=== PATIENT | female | born 1965 | race Caucasian/White ===

== ENCOUNTER 2023-03-05 14:54 | Outpatient (REF) | payer OTHER, SELFPAY ==
[2023-03-05 20:12] LABS: MANUAL DIFF FLAG NO
[2023-03-05 20:22] LABS: Basophils Absolute Auto 0.1 X10*3/uL (0.0-0.2); Basophils Percent Auto 0.8 % (0-2); Eosinophils Absolute Auto 0.3 X10*3/uL (0.0-0.4); Eosinophils Percent Auto 3.1 % (0-4); Hematocrit 42.5 % (37.0-47.0); Hemoglobin 13.9 g/dl (12.0-16.0); Imm Gran Abs Auto 0.03 X10*3/uL (0.00-0.03); Imm Gran Pct Auto 0.3 % (0.0-0.4); Lymphocytes Absolute Auto 3.9 X10*3/uL (1.2-4.9); Lymphocytes Percent Auto 44.1 % (20-40); Mean Corpuscular HGB Conc 32.7 g/dl (31.0-35.0); Mean Corpuscular Hemoglobin 29.2 pg (27.0-33.0); Mean Corpuscular Volume 89.3 fL (80.0-98.0); Mean Platelet Volume 10.5 fL (9.4-12.3); Monocytes Percent Auto 11.8 % (2-11); Neutrophils Absolute Auto 3.5 x10*3/uL (2.0-8.3); Neutrophils Percent Auto 39.9 % (45-73); Platelet Count 561 X10*3/uL (160-400); Red Blood Count 4.76 X10*6/uL (4.20-5.50); Red Cell Distribution Width 13.8 % (11.0-16.0); White Blood Count 8.8 X10*3/uL (4.8-10.8)
[2023-03-05 20:51] LABS: Alanine Aminotransferase 10 U/L (0-31); Albumin Level 4.1 g/dL (3.5-5.0); Alkaline Phosphatase 55 U/L (39-117); Anion Gap 15 (12-20); Bilirubin Total 0.3 mg/dL (0.0-1.0); Chloride 107 mmol/L (96-108); Estimated Glomerular Filt Rate > 60; Potassium 4.3 mmol/L (3.3-5.1); Sodium 141 mmol/L (135-145); Total Protein 6.2 g/dL (6.5-8.0)
[2023-03-05 20:52] LABS: Aspartate Amino Transferase 13 U/L (5-31); Blood Urea Nitrogen 19 mg/dL (9-16); Calcium 9.2 mg/dL (8.4-10.2); Carbon Dioxide 23 mmol/L (22-29); Glucose Random 91 mg/dL (60-115)
[2023-03-05 21:08] LABS: Thyroid Stimulating Hormone 2.74 uIU/mL (0.32-4.0); Vitamin D 25-OH Total 36.8 ng/mL (>30)
== END 2023-03-05 14:55 | disposition home or self-care (01) ==
LOC: HO.MANLDS 14:54
PROVIDERS: Visit Provider Physician Assistant
DX: Z00.00 Encounter for general adult medical examination without abnormal findings (principal); R22.9 Localized swelling, mass and lump, unspecified
CPT/HCPCS: 36415; 80053; 82306; 84439; 84443; 85025

== ENCOUNTER 2024-12-19 18:55 | Emergency (ER) | payer OTHER, SELFPAY ==
--- NOTE | ~2024-12-19 | CT_ITS ---
CLINICAL HISTORY: fall head strike yest. neck pain CT cervical spine without contrast Comparison: None Findings: No fracture or acute malalignment. Degenerative changes most pronounced at C5-6 and C6-7. Facet joints are normally imbricating. Visualized intracranial contents are unremarkable. Soft tissues of the neck are normal. No consolidation or effusion at the lung apices. IMPRESSION: No acute findings. Mild degenerative changes This document has been electronically signed by: Barber Gunn MD on 12/19/2024 20:04:54
--- NOTE | ~2024-12-19 | CT_ITS ---
CLINICAL HISTORY: fall head strike yest. neck pain CT head without contrast Comparison: None Findings: No intra-axial mass, midline shift, hydrocephalus, or acute hemorrhage. No significant atrophy-like change or white matter disease. There is no sinus or mastoid fluid. The orbits are within normal limits. No skull fracture. IMPRESSION: 1. No acute intracranial findings. This document has been electronically signed by: Barber Gunn MD on 12/19/2024 20:02:46
[2024-12-19 19:10] VITALS: BP 165/105; PULSE 86; RESP 16; TEMP 36.7; O2SAT 96; BMI 28.2
--- NOTE | 2024-12-19 19:10 | ED.NECK ---
HPI - Neck Pain/Injury General Chief Complaint: Neck Pain/Injury Stated Complaint: neck,shoulder pain, unable to turn neck Time Seen by Provider: 12/19/24 19:45 Source: patient Mode of arrival: ambulatory Limitations: no limitations History of Present Illness ED Provider: Guy Almanza DO HPI Narrative: 59-year-old female with no significant past medical history presents to the emergency department with 3 days of progressively worsening right-sided neck pain which radiates to the right posterior shoulder, onset after shoveling ice over the past few days. Patient denies any trauma or previous surgeries to the neck. She does report a fall with posterior head strike without LOC last night while she was consuming alcohol after attending a show. She denies any prodromal symptoms. She reports an intermittent mild headache since that time. She states her neck is worse with any movement, including when she moves her neck to swallow foods. She denies fevers, chills, numbness or weakness of her arms or swelling under her jaw. She denies difficulty breathing or chest discomfort. She denies pain when brushing her hair or palpating her scalp or face. She denies similar symptoms in the past. She follows regularly with a primary care provider and does not take any medications nor does she take any pain medications prior to arrival during the course of this pain. Related Data Previous Rx's ?Medication ?Instructions ?Recorded cyclobenzaprine 10 mg tablet 10 mg PO BEDTIME PRN muscle spasm 12/19/24 #10 tabs Allergies Allergy/AdvReac Type Severity Reaction Status Date / Time No Known Allergies Allergy Verified 12/19/24 19:14 Review of Systems Review of Systems: Yes all other systems are reviewed and are negative PMFSH Social History Social History Advance Directives: No Advance Directives Information Provided: No Do you have a plan to hurt others: No Plan Physical Exam Vital Signs: Vital Signs: Last Vital Signs Temp 98.4 F 12/19/24 19:55 Pulse 81 12/19/24 19:55 Resp 16 12/19/24 19:55 BP 154/85 H 12/19/24 19:55 Pulse Ox 98 12/19/24 19:55 O2 Del Method Room Air 12/19/24 19:55 BMI result Body Mass Index 28.2 Constitutional: ?Alert, oriented, speaking in full sentences, keeping neck in a still position secondary to discomfort with movement HEENT: ?Normocephalic, atraumatic. ?There is no tenderness over the temporal region. There is no clicking over the TMJ. Mallampati class 1 with no intraoral edema or uvular deviation. Moist mucous membranes. Unremarkable tympanic membranes bilaterally. Eyes: ?PERRL, EOMI unremarkable conjunctivae. Neck: ?The patient has pain with movement of her neck but is able to range it in all directions. There is some right-sided paravertebral tenderness without fullness or fluctuance. There is also tenderness over the right trapezius muscle. Chest: ?No chest wall tenderness Respiratory: ?Lungs clear to auscultation, no increased work of breathing Cardio: ?Regular rate and rhythm, no murmur, 2+ radial and DP pulses symmetrically GI: ?Soft, nondistended, nontender Back: ?Normal range of motion, nontender Skin: ?No rash, no lesions Neuro: ?Alert and oriented to person, place and time, moves all 4 extremities, no focal deficits, 5/5 strength and full sensation of the bilateral upper extremities Extremities: ?No swelling or tenderness, full range of motion of the upper extremities. No tenderness over the rotator cuff tendons. Psych: ?Calm, alert and cooperative, appropriate behavior Course Course Course Narrative: This is a Rapid Medical Exam performed in triage by Natalie Zhang PA-C. Full HPI, ROS and PE to be performed by primary ED provider. 59 yo F presenting to the ED c/o neck pain & stiffness x few days s/p shoveling. States cannot eat or swallowing due to pain. Also reports fall yesterday with head strike s/p out drinking ETOH with family which worsened pain. Denies AC use PE: +neck stiffness. No midline spinous ttp, +R sided cervical paraspinal ttp. limited ROM neck Plan: Head/C-spine CT Medical Decision Making Medical Decision Making MDM Narrative: Patient presenting with signs and symptoms of a right-sided paravertebral cervical strain as well as possible trapezius strain. There are no signs or symptoms consist with temporal arteritis, deep space infection or Edmund's angina. CT imaging of the brain and cervical spine are unremarkable. No concerns for near syncopal or syncopal event. Treated the patient here with acetaminophen, ibuprofen, Lidoderm patch and cyclobenzaprine with a prescription for cyclobenzaprine and return precautions as well as instructions to continue [id number] medications at home and ice application with close PCP follow-up. All questions answered and patient agrees with plan. Admission/Observation Consideration of admission/observation: Escalation of care including admission/observation considered Discharge Plan Discharge Clinical Impression: Strain of neck muscle Patient Disposition: Home, Self-Care Instructions: Cervical Sprain (ED) Additional Instructions: You were evaluated for right-sided neck pain which appears to be a muscle strain. CT imaging of your brain and cervical spine did not show any acute abnormalities and your exam was reassuring for no signs of infection. We recommend you take 600mg ibuprofen every 6 hours with food and acetaminophen (Tylenol) 1000 mg every 8 hours as needed for pain for the next 1-2 weeks. Additionally, apply Lidoderm patch and keep it in place for 12 hours, remove it and apply a new 1 the next day. When not using the Lidoderm patch you can apply ice to the area for the next couple of days, 20 minutes at a time, followed by heat starting few days from now if this helps with the pain. Due to increased pain and spasm, we prescribed you a medication called cyclobenzaprine (Flexeril). This will make you drowsy and you should not drive while on this medication. You can take it up to twice a day, especially as needed at bedtime to help you sleep. Please return to the emergency department if you have any fevers over 100 degrees F, shaking chills, drooling or difficulty swallowing your spit or food/water, worsening headache, difficulty with balance, numbness or weakness of your arm, inability to open your mouth or any other acute changes or concerns. Otherwise follow up with your primary care provider for re-evaluation. Avoid heavy lifting for the next 1-2 weeks. Prescriptions: New cyclobenzaprine 10 mg tablet 10 mg PO BEDTIME PRN (Reason: muscle spasm) Qty: 10 0RF Stand Alone Forms: Work/School Release Print Language: Citizen Of [place]
[2024-12-19 19:55] VITALS: BP 154/85; PULSE 81; RESP 16; TEMP 36.9; O2SAT 98
[2024-12-19] MEDS: Cyclobenzaprine HCl 10 MG TABLET PO (20:50)
[2024-12-19] MEDS: Lidocaine 4 % Patch ADH..PATCH 1 PATCH TRANSDERMA (20:51)
[2024-12-19] MEDS: Ibuprofen 600 MG TABLET PO (20:51)
[2024-12-19] MEDS: Acetaminophen 325 MG TABLET 975 MG PO (20:51)
[2024-12-19 21:15] VITALS: BP 154/85; PULSE 81; RESP 16; TEMP 36.9; O2SAT 98
== END 2024-12-19 21:15 | disposition home or self-care (01) ==
PROVIDERS: Emergency Provider Emergency Medicine; PCP Internal Medicine
DX: S16.1XXA Strain of muscle, fascia and tendon at neck level, initial encounter (principal); X50.0XXA Overexertion from strenuous movement or load, initial encounter; R51.9 Headache, unspecified; Y93.H1 Activity, digging, shoveling and raking; Y92.9 Unspecified place or not applicable; Y99.9 Unspecified external cause status
CPT/HCPCS: 70450; 72125; 99283; 99284

== ENCOUNTER → 2024-12-19 19:13 | Outpatient (BNV) | payer OTHER, SELFPAY | PROVIDERS: Emergency Provider Emergency Medicine; PCP Internal Medicine; Visit Provider Radiology Vascular & Interventional Radiology | DX: M54.2 Cervicalgia (principal) | CPT/HCPCS: 70450; 72125 ==

== ENCOUNTER 2025-05-11 11:09 | Outpatient (REF) | payer OTHER, SELFPAY ==
--- OUTSIDE RECORDS SUMMARY | 2025-05-11 12:24 | XMS_ITS | Data Portability ---
Author Organization [facility] Telehealth Patient Home Address [address] [place] [address] Assessment Encounter Date Assessment Date Assessment LastModified by Organization Details LastModified Time 11/19/2023 11/19/2023 Patient agreed and verbally consents to this audio and video Telehealth appt via a secure platform [email or web address] Not available 11/19/2023 11:01:27 01/07/2024 01/07/2024 Patient agreed and verbally consents to this audio and video Telehealth appt via a secure platform [email or web address] Not available 01/07/2024 11:23:27 02/28/2024 02/28/2024 [id number] [place] [id number] (VP HUM[employer]) : MDM LOW MUST MEET 2 OF 3 ELEMENTS: PROBLEMS, DATA OR RISK ELEMENT 1: PROBLEMS ADDRESSED (LOW): 2 OR MORE SELF-LIMITED OR MINOR PROBLEMS OR 1 STABLE CHRONIC ILLNESS OR 1 ACUTE UNCOMPLICATED ILLNESS OR INJURY ELEMENT 2: DATA TO BE REVISED AND ANALYZED (LOW) MUST MEET 1 OF 2 CATEGORIES: CATEGORY 1. REVIEW OF PRIOR EXTERNAL NOTES/RESULTS, ORDERING OF TEST(S) CATEGORY 2. ASSESSMENT REQUIRING INDEPENDENT HISTORIAN(S) INCLUDE WHO THE HISTORIAN IS AND RELATION TO PT AND WHY PT IS UNABLE TO GIVE COMPLETE HISTORY ELEMENT 3: RISK (LOW) RISK OF COMPLICATIONS AND/OR MORBIDITY OR MORTALITY OF PATIENT MANAGEMENT PROVIDER MUST THOROUGHLY DOCUMENT ALL OF THE ELEMENTS COVERED Not available 02/28/2024 09:57:26 Plan of Treatment Reminders Order Date Submit Date Provider Last Modified By Organization Details Last Modified Time Details Appointments ANNUAL EXAM 2024 10:30A M DR HINES Not available Not available Not available ANNUAL EXAM 2025 10:30A M DR HINES Not available Not available Not available Lab CMP, serum or plasma 2024 025 [facility], [address] [place] [address], [address], 05/11/2025 11:08:23 CBC w/ auto diff 2024 025 [facility], [address] [place] [address], [address], 05/11/2025 11:08:24 lipid panel, blood 2024 025 [facility], [address] [place] [address], [address], 05/11/2025 11:08:24 vitamin D, 25-hydrox y, total, serum 2024 025 [facility], [address] [place] [address], [address], 05/11/2025 11:08:24 Referral dermatolo gist referral 2024 025 [email or web address] [facility] [place], [address] [facility] [address], [place], [address], 05/11/2025 11:10:58 ophthalmo logist referral 2024 025 Marla Hunter MD, [address] [facility] [address], [place], [address], 05/11/2025 11:10:58 dermatolo gist referral 2024 025 [facility] [place], [address] [facility] [address], [place], [address], 11/17/2024 08:12:51 Procedures None recorded. Surgeries None recorded. Imaging CT, chest, w/o contrast - #[id number], effective 5 - 5, for procedure code [id number] 2024 025 [facility], [address] [place], [address], 11/20/2024 10:33:55 PFT, complete 2024 [facility] ([facility]iology), [address] [place], [address], 11/17/2024 16:05:35 Medication Orders albuterol sulfate HFA 90 mcg/actua tion aerosol inhaler 2024 025 [facility], [address] [place], [address], 05/11/2025 11:05:45 alprazola m 0.5 mg tablet 2024 025 [facility], [address] [place], [address], 05/11/2025 11:05:45 fluconazo le 150 mg tablet 2024 025 [facility], [address] [place], [address], 05/11/2025 11:05:46 fluconazo le 150 mg tablet 2023 025 [facility], [address] [place], [address], 11/13/2024 14:57:01 Medrol (Volodymyr) 4 mg tablets in a dose pack 2023 024 [address] [place], [address], 02/28/2024 09:32:39 amoxicill in 875 mg-potass ium clavulana te 125 mg tablet 2023 024 [address] [place], [address], 02/28/2024 09:32:33 Diflucan 150 mg tablet 2023 024 [email or web address] [facility], [address] [place], [address], 11/13/2024 14:56:59 omeprazol e 40 mg capsule,d elayed release 2023 024 [email or web address] [facility], [address] [place], [address], 12/12/2023 09:37:42 Patient TargetsNo targets recorded. Patient Instructions Encounter Date Encounter Id Patient Instructions Last Modified By Organization Details Last Modified Time 02/28/2024 [id number] vaginal yeast infection: care instructions Not available 02/28/2024 09:59:14 05/11/2025 [id number] chronic cough: care instructions Not available 05/11/2025 10:57:19 methacholine challenge* - with PFT [email or web address] Not available 05/11/2025 10:58:26 Reason for Referral Sales Operations Director Referral for B chula cell carcinoma of skin possible basal cell carcinoma, rapidly changing in appearance and bleeds easily without healing Referring Physician: Osiris Foote, Internal Medicine, Encounter Date: 11/13/2024 Sales Operations Director Referral for D ysplastic nevus of skin Referring Physician: Crispin Hines, Internal Medicine, Encounter Date: 05/11/2025 Child Welfare Worker Referral for Lesion of right eyelid eyelid lesion Referring Physician: Crispin Hines, Internal Medicine, Encounter Date: 05/11/2025 Results Created Date Observation Date Name Description Value Unit Range Abnormal Flag Note LastModifiedBy Organization Detail LastModifiedTime 11/23/1911/23/2024 CT, chest , w/o contr ast No observ ation record ed. [email or web address] Not Available 2024 11:16:45 12/20/19 25 12/19/2024 CT, brain , w/o contr ast No observ ation record ed. [facility] (Medical Records) [address] [place] [address], [address], 12/20/2024 07:42:25 12/20/19 25 12/19/2024 CT, cervi frank spine , w/o contr ast No observ ation record ed. [facility] (Medical Records) [address] [place] [address], [address], 12/20/2024 07:43:00 Result Notes None recorded. Problems Name Problem SNOMED Code Status Onset Date Resolution Date Notes Provider Name and Address Organization Details Recorded Time Anxiety 81384739 Active 2018 Not Available [facility] 2 23:15:34 Dyspnea 100823708 Active 2021 Not Available [facility] 2 23:15:34 Cough 97064102 Active 2021 Not Available [facility] 2 23:15:34 COVID-19 589370173 Active 2021 Not Available [facility] 2 23:15:34 Mass of soft tissue 511115829 Active 2022 JUAN F QURESHI [address] [place] [address], [address], [facility] [place] 3 14:42:37 Seasonal allergic rhinitis 697077461 Active 2022 JUAN F QURESHI [address] [place] [address], [address], [facility] [place] 3 14:43:19 Lymphaden opathy 95618948 Active 2022 JUAN F QURESHI [address] [place] [address], [address], [facility] [place] 3 13:21:59 Candidias is of vagina 45785943 Active 2022 JUAN F QURESHI [address] [place] [address], [address], [facility] [place] 3 16:51:09 Herpes zoster 6991590 Active 2022 Crispin Hines DO [address] [place] [address], [address], [facility] [place] 3 11:35:57 Gastritis 1750987 Active 2023 JUAN F QURESHI [address] [place] [address], [address], [facility] [place] 4 11:00:47 Acute otitis media 7116080 Active 2023 JUAN F QURESHI [address] [place] [address], [address], [facility] [place] 4 11:24:09 Serous otitis media 65033350 Active 2023 Crispin Hines, [address], [address], [facility] [place] 4 09:57:43 Serous otitis media 34753403 Active 2023 Crispin Hines, [address], [address], [facility] [place] 4 09:58:49 Acute bronchiti s 38377773 Active 2024 JUAN F QURESHI [address] [place] [address], [address], [facility] [place] 5 10:14:27 Basal cell carcinoma of skin 710090406 Active 2024 JUAN F QURESHI [address] [place] [address], [address], [facility] [place] 5 15:09:24 Basal cell carcinoma of skin 786161697 Active 2024 JUAN F QURESHI [address] [place] [address], [address], [facility] [place] 5 15:10:41 Acquired dilatatio n of ascending aorta and aortic root 273042302 Active 2024 JUAN F QURESHI [address] [place] [address], [address], [facility] [place] 5 11:17:59 Chronic cough 57887186 Active 2024 Crispin Hines, [address], [address], [facility] [place] 5 10:55:32 Dysplasti c nevus of skin 741872058 Active 2024 Crispin Hines, DO [address] [facility], [place], [address], [facility] [place] 5 10:57:35 Lesion of right eyelid 369730740696 36521 Active 2024 Crispin Hines, DO [address] [facility], [place], [address], [facility] [place] 5 10:58:10 Notes:Some problems listed i n Document: #[id number] could not be added to this patient's chart. Please review this document and add these problems to the patient's chart manually as needed. Problem Notes None recorded. Procedures Surgical History Date Name Laterality Status Provider Name and Address Organization Details Recorded Time section completed Yoana Kulkarni [facility] 01/27/2019 08:15:33 Imaging Results None recorded. Procedure Notes None recorded. Medical Equipment None Reported. Allergies No known drug allergies Medications Name Sig Start Date Stop Date Status Note LastModified by Organization Details LastModified Time cyclobenzap rine 10 mg tablet TAKE 1 TABLET (10 MG) ORALLY BEDTIME NEEDED FOR MUSCLE SPASM 05/11 completed Not Available Not Available Not Available prednisone 10 mg tablet 01/10 completed Not Available Not Available Not Available doxycycline hyclate 100 mg capsule 01/27 completed Not Available Not Available Not Available azithromyci n 250 mg tablet TAKE 2 TABLETS BY MOUTH TODAY, THEN TAKE 1 TABLET DAILY FOR 4 DAYS DIRECTED 11/13 completed Not Available Not Available Not Available Lidocaine Viscous 2 % mucosal solution Take 15 mL every 3 hours by oral route as needed for 7 days. 01/10 completed Not Available Not Available Not Available fluconazole 150 mg tablet Take 1 tablet by oral route as directed for 2 days. 2024 active Not Available Not Available Not Avai lable benzonatate 200 mg capsule TAKE 1 CAPSULE BY MOUTH THREE TIMES A DAY NEEDED FOR 14 DAYS 11/13 completed Not Available Not Available Not Available valacyclovi r 1 gram tablet TAKE 1 TABLET BY MOUTH EVERY 8 HOURS FOR 7 DAYS 11/13 completed Not Available Not Available Not Available metronidazo le 0.75 % (37.5 mg/5 gram) vaginal gel INSERT 1 APPLICATO RFUL(S) BY VAGINAL ROUTE , 1 TIME PER DAY , FOR 5 DAYS 03/05 completed Not Available Not Available Not Available omeprazole 40 mg capsule,del ayed release TAKE 1 CAPSULE BY MOUTH EVERY DAY active Not Available Not Available No t Available acyclovir 800 mg tablet 01/10 completed Not Available Not Available Not Available alprazolam 0.5 mg tablet TAKE 1 TABLET BY MOUTH EVERY 6 TO 8 HOURS NEEDED 2024 active Not Available Not Available Not Avai lable amoxicillin 875 mg tablet TAKE 1 TABLET BY MOUTH EVERY 12 HOURS FOR 5 DAYS 11/19 completed Not Available Not Available Not Available benzonatate 100 mg capsule 01/10 completed Not Available Not Available Not Available cephalexin 500 mg capsule TAKE 1 CAPSULE BY MOUTH 3 TIMES DAILY X5 DAYS WITH FOOD AND A GLASS OF WATER 05/08 completed Not Available Not Available Not Available neomycin-po lymyxin-dex ameth 3.5 mg/mL-10,00 0 unit/mL-0.1 % eye drops INSTILL 1 DROP INTO AFFECTED EYE(S) EVERY 3 TO 4 HOURS 03/05 completed Not Available Not Available Not Available gabapentin 300 mg capsule Take 1 capsule 3 times a day by oral route for 30 days. 03/05 completed Not Available Not Available Not Available codeine 10 mg-guaifene sin 100 mg/5 mL oral liquid TAKE 10 ML BY MOUTH EVERY 4 HOURS 02/26 completed Not Available Not Available Not Available levofloxaci n 500 mg tablet TAKE 1 TABLET BY MOUTH EVERY 24 HOURS FOR 7 DAYS 03/05 completed Not Available Not Available Not Available methylpredn isolone 4 mg tablets in a dose pack TAKE 6 TABLETS ON DAY 1 DIRECTED ON PACKAGE AND DECREASE BY 1 TAB EACH DAY FOR A TOTAL OF 6 DAYS 02/27 completed Not Available Not Available Not Available albuterol sulfate HFA 90 mcg/actuati on aerosol inhaler INHALE 1-2 PUFFS BY INHALATIO N ROUTE EVERY 4-6 HOURS NEEDED 2024 active Not Available Not Available Not Avai lable piroxicam 20 mg capsule 01/27 completed Not Available Not Available Not Available amoxicillin 875 mg-serena reyes clavulanate 125 mg tablet TAKE 1 TABLET BY MOUTH EVERY 12 HOURS FOR 7 DAYS 02/27 completed Not Available Not Available Not Available Paxlovid 300 mg (150 mg x 2)-100 mg tablets in a dose pack TAKE 3 TABLETS TWICE A DAY BY ORAL ROUTE FOR 5 DAYS-- DIRECTED ON PACKAGE 03/05 completed Not Available Not Available Not Available molnupiravi r 200 mg capsule (EUA) TAKE 4 CAPSULES BY MOUTH EVERY 12 HOURS X5 DAYS 03/05 completed Not Available Not Available Not Available Vitals Date Recorded Body height Body mass index (BMI) Body weight Heart rate Oxygen saturation Oxygen saturation in Arterial blood by Pulse oximetry Systolic And Diastolic Provider Name and Address Organization Details Last Updated DateTime 5 160.02 cm 29.2 kg/m2 40918.7 4 g 71 /min 98 % 98 % 156/98 mm[Hg] Krystal Lawson [facility] 5 15:01:19 Date Recorded Body height Provider Name an d Address Organization Details Last Updated DateTime 01/07/2024 160.02 cm Krystal Lawson [facility] 01/07/2024 10:04:25 Date Recorded Body height Body mass index (BMI) Body weight Heart rate Respiratory rate Oxygen saturation Oxygen saturation in Arterial blood by Pulse oximetry Systolic And Diastolic Provider Name and Address Organization Details Last Updated DateTime 4 160.02 cm 29.2 kg/m2 96475.7 4 g 86 /min 16 /min 98 % 98 % 146/80 mm[Hg] Deric Montilla [facility] 4 09:32:10 Date Recorded Body height Body mass index (BMI) Body weight Oxygen saturation Oxygen saturation in Arterial blood by Pulse oximetry Heart rate Systolic And Diastolic Provider Name and Address Organization Details Last Updated DateTime 5 160.02 cm 28.9 kg/m2 20838.9 2 g 98 % 98 % 88 /min 122/84 mm[Hg] Dipika Nassar [facility] 5 10:27:41 Social History Question Answer Notes LastModified by Organizat ion Details LastModified Time Tobacco Smoking Status Never Smoker Not Available [facility] 08/23/2020 03:36:23 What Was The Date Of Your Most Recent Tobacco Screening? 05/11/2025 [email or web address] Information not available 05/11/2025 Sex: Unknown Functional Status Question Answer Note LastModified by Organization D etails LastModified Time Do you or have you ever used any other forms of tobacco or nicotine? No [email or web address] Information not available 05/24/2023 Mental Status None recorded. Family History Nothing Reported. Medical History No medical history recorded. Gynecological HistoryNo gynecological history recorded. Obstetrics History GPAL:G 0 P 0 0 0 0 Immunizations Vaccine Type Date Status Note Provider Nam e and Address Organization Details Recorded Time COVID-19 vaccine, vector-nr, rS-Ad26, PF, 0.5 mL 01/28/2021 completed Not Available [facility] 2 23:15:34 COVID-19 vaccine, vector-nr, rS-Ad26, PF, 0.5 mL 08/29/2021 completed Not Available [facility] 2 23:15:34 Past Encounters Encounter ID Performer Location Encounter Start Date Encounter Closed Date Diagnosis/Indication Diagnosis SNOMED-CT Code Diagnosis ICD10 Code Diagnosis Note [id number] Crispin Hines [facility] [address] [facility] [facility] [address] 01/27/2019 10:19:59 01/27/2019 10:56:26 Adult health examination 053940059 Z00.00 doing well overall and is feeling well needs lab Active or passive immunization 711431284 Z23 [id number] Crispin Hines DO [facility] [address] [facility],[place] [address] 06/03/2019 08:45:11 06/03/2019 09:17:21 Herpes zoster 8048235 B02.9 continue acyclovir consider shingrix consider lidoderm after lesions heal Anxiety 53799308 F41.9 avoid xanax while on gabapentin [id number] Crispin Hines DO [facility] [address] [facility],[place] [address] 09/06/2021 09:43:45 09/06/2021 16:50:56 Acute sinusitis 22026640 J01.00 will start on treatment for sinusitis vs pharyngiti s Cough 93808467 R05.1 given cough suppressan t Pain in throat 444677953 R07.0 given lidocaine mouth wash for sore throat [id number] Crispin Hines [facility] [address] [facility],[place] [address] 02/02/2022 09:24:42 02/06/2022 13:57:43 Dyspnea 650247251 R06.02 will resubmit inhaler and see what it prompts the pharmacy to do Cough 25913158 R05.1 will fu with a CXR and medication treatment, adjust based on XR results [id number] Crispin Hines [facility] [address] [facility],[place] [address] 02/26/2022 10:17:44 02/26/2022 11:08:42 Active or passive immunization 221510634 Z23 will get Tdap Adult heal th examination 742908598 Z00.00 doing well overall and is feeling well needs lab Screening for malignant neoplasm of colon 426720585 Z12.11 fwe will set up for the fall COVID-19 916159825 U07.1 has now resolved and is feeling wellrelate s the antiviral meds helped her and she did quite well [id number] Crispin Hines [facility] [address] [facility],[place] [address] 03/05/2023 14:25:16 03/11/2023 09:38:51 Anxiety 52255551 F41.1 stable Mass of soft tissue [address] Seasonal a llergic rhinitis 041528043 J30.2 possibly related to the season Adult heal th examination 948552916 Z00.00 agreed to new work upnothing on file [id number] Crispin Hines [facility] [address] [facility],[place] [address] 05/24/2023 08:49:45 05/24/2023 14:39:39 Herpes zoster 9380767 B02.9 finsih all valacyclov ir but now with ac cellulitis developing Candidiasis of vagina 72 478904 B37.31 [id number] Crispin Hines [facility] [address] [facility] [address],[place] [address] 06/11/2023 11:43:36 06/11/2023 13:38:09 Anxiety 27257512 F41.9 no major issues Adult heal th examination 806229217 Z00.00 doing well overall and is feeling well needs lab [id number] Crispin Hines [facility] [address] [facility] [address],[place] [address] 11/19/2023 08:47:51 11/19/2023 15:41:04 Gastritis 8988489 K29.60 fu with pt in two weeks [id number] Crispin Hines [facility] [address] [facility] [address],[place] [address] 01/07/2024 09:58:36 01/07/2024 16:03:52 Acute otitis media 6538061 H65.04 start abx and medrol Candidiasis of vagina 72 906223 B37.31 hx of yeast infections after abx use, needs refill [id number] Crispin Hines [facility] [address] [facility] [address],[place] [address] 02/28/2024 09:16:25 02/28/2024 10:30:13 Depression screening 774675405 Z13.31 Negative Screening Serous otitis media 8032 7007 H65.91 sudafed bid for two weeks Candidiasis of vagina 72 555104 B37.31 [id number] Crispin Hines [facility] [address] [facility] [address],[place] [address] 11/13/2024 14:42:41 11/13/2024 15:31:42 Basal cell carcinoma of skin 308573811 C44.719 will set up [facility] consult for eval for possible basal cell carcinoma Dyspnea 255771925 R06.02 set up with further testing Anxiety 60481234 F41.1 stable [id number] DO Tessie Gabriel [facility] [address] [facility],[place] [address] 05/11/2025 10:20:15 05/11/2025 11:10:57 Active or passive immunization 005408718 Z23 will get Tdap Depression screening 171 100201 Z13.31 Negative Screening Acquired d ilatation of ascending aorta and aortic root 766982573 I77.810 followed by cardiology Anxiety 37496862 F41.1 no major issues Preventive procedure 169 508329 Z00.00 doing well overall and is feeling well needs lab Chronic cough 36232639 R 05.3 Dysplastic nevus of skin 239018746 D22.9 Lesion of right eyelid 4946341048 5109563 H02.9 Cough 49911322 R05.9 Candidiasis of vagina 72 730852 B37.31 Health Concerns Section Related Observation LastModified by Organization Detai ls LastModified Time None Recorded Concern Status LastModified by Organization Details LastModified Time None Recorded Advance Directives Directive None Recorded Payers Insurance Date Sequence Insurance Name Policy Number Policy Harper Covered Member ID Harper Member ID Guarantor Name 11/13/2024 1 [facility] [id number] Marlene Marrero [id number] Marlene Marrero 05/08/[address] [facility] [id number] Marlene Marrero [id number] Marlene Marrero Notes Date Note Type Note Provider Name a nd Address Organization Details Recorded Time 4 text/html c/o sore throat The patient is participating in this appointment via telemedicine communication with a phone call/video calling service ([employer] [employer])The patient consents to use of these platforms in place of an in-person appointment due to either sick symptoms the patient is presenting with or current office closure due to COVID exposure in order to keep our office staff and patients safe the patient reports that she developed bad acid reflux symptoms causing sore throatthe patient reports it has been going on for the past couple weeks the patient reports she feels it more at night during bed the patient reports that she has been eating more at night late and spicy foodthe patient most likely has gastritis/esophagitis start omeprazole 40 mg for 30 daysupdate ar in two weeks JUAN F QURESHI [address] [place], [address], [facility] [place] 11/19/2023 11:07:31 4 text/html c/o sick symptoms The patient is participating in this appointment via telemedicine communication with a phone call/video calling service ([facility] [employer])The patient consents to use of these platforms in place of an in-person appointment due to either sick symptoms the patient is presenting with or current office closure due to COVID exposure in order to keep our office staff and patients safe The patient presents to the office today with concerns of sick symptoms including right earache, LN swelling, right side, pain with swallowing but not throat pain, tender around her right ear no fever, no chest pain, no chillsno sinus pain or pressureno cough or no sob no chest tightness The symptoms started originally about a few days agoThe patient reports exposure to people at a funeralThe patient symptoms mainly involves the LN swelling and pain and painful right ear Pertinent comorbidities include n/a The patient symptoms are alleviated by nothingThe patient symptoms are exacerbated by bending forward and swallowing The patient has tested for COVID-19 and the results was negative JUAN F QURESHI [address] [place], [id number], [facility], [place], operated by [facility] 01/07/2024 11:27:34 4 text/html here for rechk and relates that she has been getting recurrent ear infections in right ear and has had several course of antibioticsnow with coughing and ear pain sl dizzyalso has yeast infect Crispin Hines DO [address] [facility], [place], [id number], [facility], [place], operated by [facility] 02/28/2024 10:00:11 5 text/html f/u mutliple issues the patient reports that she has a lingering dry cough, the patient reports that the cough has been ongoing for about a year the patient had an XR that was clear in 2021, had been intermittent for awhileno CT or PFTrecommended further evaluation for RAD/interstitial lung diseasepatient agreedorders sent patient has a new lesion on the inside of her L thigh, raised edges, about 1.5 cm in length, rolled, pearly skin color, with scabbingpatient nicked it with her razor and it bleed for awhile, continue to bleed on and offgrew rapidly, within 3 weeks it developed from very small lesion into what it looks like today recommended ANDREIA f/u with derm, concern for possible basal cell given appearance, growth rate and difficulty healingreferral sent anxiety is good, xanax works well for her, just refilled, no questions about the medicaton JUAN F QURESHI [address] [place], [id number], [facility], [place], operated by [facility] 11/13/2024 15:23:47 text/html Annual WellnessReported bypatient.Diet and Nutrition:healthy diet Fracture Risk:no history of fractures; no recent explained fracture; no sudden unexplained fractures; no previous musculoskeletal injuries Physical Activity:exercises on a regular basis; recent increase in physical activity; good physical condition Additional Lifestyle Factors:no tobacco use; no alcohol intake; stopped drinking alcohol Depression Risk:never feels sad, empty, or tearful; no loss of interest in activities; no significant changes in weight; no sleep disturbances or insomnia; no agitation; no loss of energy; no feelings of worthlessness or guilt; no thoughts of suicide; no history of depression; no history of mood disorders Hearing:no loss of hearing Vision:no vision problemsNotes:has an onging irritating coughAnxiety/Depressi onReported bypatient.Severity:de nies suicidal ideations; able to maintain relationships; does not interfere with activities of daily living Context:no major life stressors Associated Symptoms:denies homicidal ideations; no significant weight gain; no significant weight loss; no visual/auditory hallucinations; no delusions; no shortness of breath; mood good; no anxiety; no crying spells; no panic; no isolation; sleeping well; appetite good; energy good; no apathy; maintaining functionality here for rechk states doing wellhad follow up with switch engineer for dilated ascending aortawill be followed yearly Crispin Hines DO [address] [place], [address], [facility], [place], operated by [facility] 05/11/2025 11:06:02 OBGyn Episode No OBEpisode recorded.
--- OUTSIDE RECORDS SUMMARY | 2025-05-11 12:24 | XMS_ITS | Clinical Summary ---
Author Organization [facility] Address [address] [place], [place] [id number] Phone Care Team Providers Care Bean Roaster Name Role Phone Crispin Kemp DO Primary Care Provider [phone] Social History Tobacco Use Types Packs/Day Years Used Date Smoking Tobacco: Never Assessed Education Answer Date Recorded Are you interested in more education? Not on rajwinder e 02/16/2023 Are you concerned about learning? Not on file 02/16/2023 No 02/16/2023 No 02/16/2023 Digital Access Answer Date Recorded No 03/19/2023 No 03/19/2023 Reliable internet access at home? Not on file 03/19/2023 Device with a working camera? Not on file Comments Unknown Sex and Gender Information Value Date Recorded Sex Assigned at Not on file Legal Sex Female 9:14 AM EDT Gender Identity Not on file Sexual Orientation Not on file Plan of Treatment Health Maintenance Due Date Last Done Comments Adult Td,Tdap Booster 1964 LIPID PANEL 1964 DEPRESSION SCREENING 1976 SMOKING Hx and SMOKELESS TOBACCO SCREENING 1977 HEPATITIS C SCREENING 1982 HIV ONE-TIME SCREENING (18-6 5 YEARS) 1982 PAP SMEAR 1985 MAMMOGRAM 2004 COLOGUARD 2009 COLONOSCOPY 2009 COLORECTAL CANCER SCREENING 2009 FIT TEST 2009 FOBT 2009 SIGMOIDOSCOPY 2009 VIRTUAL COLONOSCOPY 2009 PNEUMOCOCCAL VACCINES (50+ years) (1 of 1 - PCV) 2014 ZOSTER VACCINES (1 of 2) 2014 COVID-19 VACCINE (3 2023-2 5 season) 2024 08/29/2021, 01/28/2021 RSV VACCINE (1 - 1-dose 75+ series) 2039 HEPATITIS A VACCINES Aged Out No long er eligible based on patient's age to complete this topic HIB VACCINES Aged Out No longer eligi ble based on patient's age to complete this topic MENINGOCOCCAL VACCINES (ACWY) Aged Out No longer eligible based on patient's age to complete this topic MENINGOCOCCAL VACCINES (B) Aged Out N o longer eligible based on patient's age to complete this topic Medical Devices Not on file Insurance [address] [place], [place] [id number] [address] [address] [address] [place] [address] HMO Care Teams Bean Roaster Relationship Specialty Start Date End Date Crispin Kemp DO [email or web address] PCP - General Internal Medicine 05/11/22 Additional Source Comments The information contained in this document represents components of the legal health record. It is not the complete legal health record.[facility]
[2025-05-11 13:08] LABS: MANUAL DIFF FLAG NO
[2025-05-11 13:52] LABS: Hematocrit 42.0 % (37.0-47.0); Hemoglobin 13.7 g/dl (12.0-16.0); Imm Gran Abs Auto 0.05 X10*3/uL (0.00-0.03); Imm Gran Pct Auto 0.5 % (0.0-0.4); Lymphocytes Absolute Auto 3.2 X10*3/uL (1.2-4.9); Mean Corpuscular HGB Conc 32.6 g/dl (31.0-35.0); Mean Corpuscular Hemoglobin 29.5 pg (27.0-33.0); Mean Corpuscular Volume 90.3 fL (80.0-98.0); NRBC Abs Auto 0.000 X10*3/uL (0.0-0.012); NRBC Pct Auto 0.0 /100WBC (0.0-0.2); Platelet Count 564 X10*3/uL (160-400); Red Blood Count 4.65 X10*6/uL (4.20-5.50); White Blood Count 10.7 X10*3/uL (4.8-10.8)
[2025-05-11 14:25] LABS: Alanine Aminotransferase 12 U/L (0-31); Albumin Level 4.6 g/dL (3.5-5.0); Alkaline Phosphatase 65 U/L (39-117); Anion Gap 12 (12-20); Aspartate Amino Transferase 17 U/L (5-31); Blood Urea Nitrogen 17 mg/dL (9-16); Calcium 9.4 mg/dL (8.4-10.2); Carbon Dioxide 26 mmol/L (22-29); Chloride 108 mmol/L (96-108); Cholesterol 224 mg/dL (<200); Estimated Glomerular Filt Rate > 60; HDL Cholesterol 59 mg/dL (>40); Potassium 4.5 mmol/L (3.3-5.1); Sodium 141 mmol/L (135-145); Total Protein 7.1 g/dL (6.5-8.0); Triglycerides 110 mg/dL (<150)
== END 2025-05-11 11:10 | disposition home or self-care (01) ==
LOC: HO.MANLDS 11:09
PROVIDERS: Visit Provider Internal Medicine
DX: Z00.00 Encounter for general adult medical examination without abnormal findings (principal); Z13.6 Encounter for screening for cardiovascular disorders
CPT/HCPCS: 36415; 80053; 80061; 82306; 85025